=== PATIENT | male | born 1980 | race Caucasian/White ===

== ENCOUNTER 2021-05-21 12:04 | Emergency (ER) | payer OTHER ==
[~2021-05-21] VITALS: Ht 182.9 cm; Wt 86.2 kg
[2021-05-21 12:15] VITALS: BP 139/88
[2021-05-21] MEDS ORDERED: POLYMYXIN B/TMP10 ML INTRAOCULR (12:38)
== END 2021-05-21 12:47 | disposition home or self-care (01) ==
LOC: M.ERS 12:04
DX: T15.81XA Foreign body in other and multiple parts of external eye, right eye, initial encounter (principal)